=== PATIENT | female | born 1975 | race Caucasian/White ===

== ENCOUNTER → 2019-04-13 | Outpatient (CLI) | payer OTHER ==
--- NOTE | 2019-04-13 16:57 | US ---
"EXAMINATION TYPE: US extremity nonvasculr ltd RT DATE OF EXAM: 04/13/2019 COMPARISON: NONE CLINICAL HISTORY: R22.2 Mass and lump, R buttock. Palpable painful area right upper buttock Right upper buttock: 5.4 x 1.8 x 3.4cm irregular hypoechoic vascular structure seen at palpable area. Grayscale, color Doppler imaging performed at the site of patient's palpable abnormality at the right upper gluteal region. IMPRESSION: Irregular hypoechoic mass shows vascularity and color Doppler. Recommend MRI with and wi thout contrast, underlying soft tissue mass is suspected. A Yellow level critical message alert has been initiated for Girish Levin MD via the [facility] | Critical Results System on 04/13/2019 4:54 PM. This message alert has been sent to Girish rivera MD via the preferences provided by the clinician for the receipt of Radiology Critical Findings. Anil essage ID [id number]."
== END | disposition home or self-care (01) ==
LOC: RADUSWWP 15:35
PROVIDERS: ATTEND Internal Medicine
DX: R22.2 Localized swelling, mass and lump, trunk (principal); Z88.0 Allergy status to penicillin; Z88.1 Allergy status to other antibiotic agents

== ENCOUNTER → 2019-08-27 | Outpatient (CLI) | payer OTHER ==
--- NOTE | 2019-08-27 12:50 | MR ---
EXAMINATION TYPE: MR ankle LT wo con DATE OF EXAM: 08/27/2019 COMPARISON: None. HISTORY: non-healing fracture left tibia per order. Pain with possible dropped foot per patient. Standard multiplanar, multisequence MRI departmental protocol Multiplanar, multisequence images of the left ankle were acquired. Diffusion weighted imaging was per formed. FINDINGS: Distal Achilles tendon is intact. The Plantar fascia is within normal limits. The anterior extensor tendons are unremarkable. The peroneal brevis and longus tendons show some surr ounding fluid at level of the lateral malleolus. Brevis tendon is intact. Longus tendon shows marked increased signal and thinning as crosses inferior to the anterior calcaneus with secondary area of li near increased signal seen best sagittal image 14 distally near base of first metatarsal. Some fluid along course of the posterior tibial tendon is present at level of medial malleolus and mo re distally. Posterior medial flexor tendons are intact. The anterior tibial fibular and anterior talofibular ligaments are intact. Ankle mortise symmetry is preserved. Medial deltoid ligament is intact. Normal sinus tarsi fat is seen. There is small posterior tibiotalar joint effusion. Some mild ill-def ined fluid deep to the mid to distal portion distal Achilles tendon. Visualized mid foot articulation s are maintained without suspicious osseous edema. Distal tibia is intact without fracture or suspicious edema. IMPRESSION: 1. Multifocal tendinosis and partial tearing of the peroneus longus tendon with possible additional p eroneal tenosynovitis.
== END | disposition home or self-care (01) ==
LOC: RADMRIMAIN 10:42
PROVIDERS: ATTEND Podiatrist Foot & Ankle Surgery
DX: S82.202G Unspecified fracture of shaft of left tibia, subsequent encounter for closed fracture with delayed healing (principal)

== ENCOUNTER 2020-03-14 17:16 | Emergency (ER) | payer OTHER ==
[2020-03-14 17:23] VITALS: BP 148/94; PULSE 94; RESP 16; TEMP 98.5
[2020-03-14] MEDS ORDERED: KETOROLAC 30 MG/ML 1 ML VIAL IM STA (17:36)
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
--- NOTE | 2020-03-14 18:31 | XR ---
EXAMINATION TYPE: XR hand complete LT DATE OF EXAM: 03/14/2020 COMPARISON: None HISTORY: Pain after fall TECHNIQUE: Three-view left hand FINDINGS: There is an oblique fracture of the distal diaphyseal fifth metacarpal. There is some displ acement of the fracture fragment and some angulation. No additional fractures are evident. Soft tissues have minimal soft tissue swelling. IMPRESSION: 1. Distal diaphyseal fifth metacarpal fracture with some angulation.
--- NOTE | 2020-03-14 18:31 | XR ---
EXAMINATION TYPE: XR wrist complete LT DATE OF EXAM: 03/14/2020 COMPARISON: None HISTORY: Fall, pain TECHNIQUE: 4 view left wrist FINDINGS: No acute fractures within the wrist are evident. Joint spaces appear preserved. Soft tissue s are normal. Note is made of the fifth metacarpal fracture with angulation. IMPRESSION: 1. No acute fractures within the wrist. 2. Fracture of the fifth metacarpal.
[2020-03-14] MEDS ORDERED: ACET/COD 300 MG/30 MG STARTER PACK 6 TAB BTL PO STA (19:09)
[2020-03-14] MEDS ORDERED: LIDOCAINE 1% INJ 10MG/ML (20 ML MDV) SQ ONE (19:13)
--- NOTE | 2020-03-14 20:11 | XR ---
EXAMINATION TYPE: XR hand limited LT DATE OF EXAM: 03/14/2020 COMPARISON: Earlier exam HISTORY: Fifth metacarpal fracture TECHNIQUE: 2 view left hand FINDINGS: There is reduction of the fracture of the fifth metacarpal. Fracture fragments appear in go od alignment and position. No new fractures are evident. IMPRESSION: 1. Improved alignment and positioning of fifth metacarpal fracture left hand.
--- NOTE | 2020-03-15 05:42 | CDI ---
Dear Titi Telles, PAC Please provide correct fracture site. Clinical impression is fx of fifth metatarsal bone but xray & procedure done for fifth metacarpal bone. Thank you, Oscar Kirkpatrick Sleep Lab Technologist If you have any questions, please contact [employer] at [phone] [facility]
== END 2020-03-14 20:20 | disposition home or self-care (01) ==
LOC: EC 17:16
DX: S62.327A Displaced fracture of shaft of fifth metacarpal bone, left hand, initial encounter for closed fracture (principal); Z88.0 Allergy status to penicillin; X58.XXXA Exposure to other specified factors, initial encounter
CPT/HCPCS: 99283; 26605; 96372; 73110; 73120; 73130; J2001; J1885

== ENCOUNTER 2020-03-22 14:34 | Emergency (ER) | payer OTHER ==
[2020-03-22 15:17] VITALS: RESP 18; TEMP 98.3
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
[2020-03-22 17:46] LABS: Amphetamine Screen,Urine Not Detected (NotDetected); Barbiturate Screen,Urine Not Detected (NotDetected); Benzodiazepines Screen,Urine Not Detected (NotDetected); Cocaine Screen,Urine Not Detected (NotDetected); Methadone Screen, Urine Not Detected (NotDetected); Opiate Screen,Urine Not Detected (NotDetected); Oxycodone Screen, Urine Not Detected (NotDetected); Phencyclidine Screen,Urine Not Detected (NotDetected); Tricyclic Antidepressant,Urine Detected (NotDetected); Urn Cannabinoid Scrn Not Detected (NotDetected)
[2020-03-22 18:44] VITALS: BP 138/88; PULSE 84
== END 2020-03-22 20:30 ==
LOC: EC 14:34
DX: F32.9 Major depressive disorder, single episode, unspecified (principal); R45.851 Suicidal ideations; F41.9 Anxiety disorder, unspecified; F10.10 Alcohol abuse, uncomplicated; Z88.0 Allergy status to penicillin; Z88.1 Allergy status to other antibiotic agents; Z79.899 Other long term (current) drug therapy
CPT/HCPCS: 80306; 82075; 99285

== ENCOUNTER 2020-03-23 14:14 | Emergency (ER) | payer OTHER ==
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
[2020-03-23 19:54] LABS: Amphetamine Screen,Urine Not Detected (NotDetected); Benzodiazepines Screen,Urine Not Detected (NotDetected); Cocaine Screen,Urine Not Detected (NotDetected); Opiate Screen,Urine Not Detected (NotDetected); Phencyclidine Screen,Urine Not Detected (NotDetected); Urn Cannabinoid Scrn Not Detected (NotDetected)
[2020-03-23 19:55] LABS: Barbiturate Screen,Urine Not Detected (NotDetected); Methadone Screen, Urine Not Detected (NotDetected); Oxycodone Screen, Urine Not Detected (NotDetected); Tricyclic Antidepressant,Urine Detected (NotDetected)
[2020-03-23 20:49] LABS: Appearance,Urine Clear (Clear); Bilirubin,Urine Negative (Negative); Blood,Urine Negative (Negative); Color,Urine Yellow; Glucose,Urine (UA) Negative (Negative); Ketones,Urine Negative (Negative); Leukocyte Esterase,Urine Negative (Negative); Nitrite,Urine Negative (Negative); Protein,Urine Negative (Negative); Specific Gravity,Urine 1.018 (1.001-1.035); Urobilinogen,Urine <2.0 mg/dL (<2.0)
[2020-03-23 23:18] LABS: Basophils # (A) 0.1 k/uL (0-0.2); Basophils % (A) 1 %; Eosinophils # (A) 0.3 k/uL (0-0.7); Eosinophils % (A) 5 %; HCT 31.8 % (34.0-46.0); Lymphocytes # (A) 3.6 k/uL (1.0-4.8); Lymphocytes % (A) 53 %; MCH 28.1 pg (25.0-35.0); MCHC 31.5 g/dL (31.0-37.0); MCV 89.1 fL (80.0-100.0); Mean Platelet Volume 7.5; Monocytes # (A) 0.4 k/uL (0-1.0); Monocytes % (A) 6 %; Neutrophils # (A) 2.2 k/uL (1.3-7.7); Neutrophils % (A) 33 %; Platelet Count 253 k/uL (150-450); RBC 3.57 m/uL (3.80-5.40); RDW 14.6 % (11.5-15.5); WBC 6.8 k/uL (3.8-10.6)
[2020-03-23 23:33] LABS: Albumin 3.5 g/dL (3.5-5.0); Potassium 3.6 mmol/L (3.5-5.1); Total Bilirubin 0.3 mg/dL (0.2-1.3); Total Protein 6.1 g/dL (6.3-8.2)
[2020-03-24] MEDS ORDERED: GABAPENTIN 300 MG CAP PO STA (00:40)
[2020-03-24] MEDS ORDERED: CYCLOBENZAPRINE 10 MG TAB PO STA (00:41)
[2020-03-24] MEDS ORDERED: NAPROXEN 250 MG TAB PO STA (00:42)
[2020-03-24] MEDS ORDERED: traZODone HCL 50 MG TAB PO ONE (00:43)
[2020-03-24 06:27] VITALS: BP 109/64; PULSE 73; RESP 16; TEMP 98.3
== END 2020-03-24 11:19 ==
LOC: EC 14:14
DX: R45.851 Suicidal ideations (principal); F32.9 Major depressive disorder, single episode, unspecified; Z79.899 Other long term (current) drug therapy; Z79.1 Long term (current) use of non-steroidal anti-inflammatories (NSAID); Z88.0 Allergy status to penicillin; Z88.1 Allergy status to other antibiotic agents
CPT/HCPCS: 36415; 80053; 80306; 81003; 82075; 85025; 99285